=== PATIENT | female | born 1970 | race Caucasian/White ===

== ENCOUNTER 2024-07-05 07:34 | Outpatient (CLI) | payer OTHER, SELFPAY ==
--- NOTE | ~2024-07-05 | US_ITS ---
US right upper quadrant INDICATION: Elevated alkaline phosphatase levels. PROCEDURE: Realtime right upper abdominal ultrasound. COMPARISON: No prior studies for comparison. FINDINGS: The pancreas is normal without focal mass or pancreatic ductal dilation. Liver echotexture is normal without focal mass or intrahepatic biliary dilatation. There is normal directional flow i n the portal vein. There are gallstones. No gallbladder wall thickening or pericholecystic fluid. Common bile duct brooke ures 4 mm. No sonographic Garcia's sign. IMPRESSION: 1: Cholelithiasis. Reviewed, dictated and finalized at location A. IMPRESSION: 1: Cholelithiasis.
== END 2024-07-05 07:35 | disposition home or self-care (01) ==
LOC: MICIMG 07:35
DX: R74.8 Abnormal levels of other serum enzymes (principal); K80.20 Calculus of gallbladder without cholecystitis without obstruction
CPT/HCPCS: 76705

== ENCOUNTER 2024-12-22 13:09 | Outpatient (CLI) | payer OTHER, SELFPAY ==
--- NOTE | ~2024-12-22 | CT_ITS ---
EXAMINATION:CT lung screening DATE: 12/22/2024 13:26 INDICATION: Screening TECHNIQUE: Computed tomography (CT) of the chest was performed without intravenous contrast. The dose-length product (DLP) was 63.23 mGy-cm. COMPARISON: None. FINDINGS: 1.4 x 1.8 x 0.8 cm spiculated nodular focus in the left upper lobe image 42 series 4. Appearing but partially calcified finding in the lateral aspect of the left upper lobe measures approximate 1.5 x 1.0 cm image 38 series 4. Diffuse centrilobular emphysematous changes present. No acute process seen. Heart and great vessels normal in size with trace pericardial effusion and coronary artery calcifications present. No acute process seen in the visualized upper abdomen, bony thorax or extrathoracic soft tissues. IMPRESSION: 1. 1.8 x 1.4 cm spiculated nodular mass in the left upper lobe possibly representing benign area of fibrosis but malignant lesion is not excluded. Correlate with PET/CT. LUNG RADS 4. 2. Other findings as above. The smaller left upper lobe lesion has some calcifications, likely associated with benign etiology. Reviewed, dictated and finalized at location A. D INTERVIEWER IMPRESSION: 1. 1.8 x 1.4 cm spiculated nodular mass in the left upper lobe possibly represe nting benign area of fibrosis but malignant lesion is not excluded. Correlate w ith PET/CT. LUNG RADS 4. 2. Other findings as above. The smaller left upper lobe lesion has some calcifi cations, likely associated with benign etiology.
== END 2024-12-22 13:10 | disposition home or self-care (01) ==
LOC: MICIMG 13:10
PROVIDERS: Visit Provider Nurse Practitioner Family
DX: Z12.2 Encounter for screening for malignant neoplasm of respiratory organs (principal); Z87.891 Personal history of nicotine dependence
CPT/HCPCS: 71271